=== PATIENT | female | born 1990 | race Caucasian/White ===

== ENCOUNTER → 2017-05-26 | Outpatient (CLI) | payer OTHER ==
[~2017-05-26] MED LIST: LORTAB 7.5-5001 TAB; PERCOCET 5/321 UDTAB PO; PHENERGAN25 MG; TOPAMAX PO
--- NOTE | ~2017-05-26 | US98 ---
[facility] A Service of [facility] RADIOLOGY TEXT RESULTS PATIENT: SHASHANK COHEN LOCATION: [facility] : [birth year] UNIT #: [id number] AGE: [address]: Rosmery Kaufman MD SEX: F ORDER DR: [id number] [address] [address] [id number] O MR#: [id number] Acc #: [id number] NAME: SHASHANK COHEN : 1990 SEX: F STUDY DATE/TIME: 05/26/2017 13:52 UNIT: [facility] ROOM: STUDY DESCRIPTION: US Pelvic Non-OB Complete Attending Physician: Rosmery Kaufman M.D. Referring Physician: Rosmery Kaufman M.D. Ordering Physician: Rosmery Kaufman M.D. Primary Care Physician: Rosmery Kaufman M.D. MEDICAL IMAGING REPORT This report is preliminary unless electronic signature is present. EXAM Pelvic ultrasound, 05/26 INDICATION Pelvic pain and back pain that started today. History of ovarian cyst. FINDINGS Transabdominal and transvaginal imaging is performed of the pelvis in multiple planes. Transvaginal imaging is performed for better evaluation of the endometrium and adnexa. Comparison is made with 07/08/2014. Uterus measures about 7.3 x 5.1 x 4.2 cm. Endometrial stripe is normal at 3.0 mm. Myometrial echotexture is normal. There is a small nabothian cyst in the cervix. There is a trace amount of free fluid in the cul-de-sac which is likely physiologic. Left ovary is normal and shows perfusion by Doppler. It does contain a probable small complicated cyst measuring up to 2.3 cm. The right ovary cannot be identified on this exam. IMPRESSION 1. Normal uterus and endometrial stripe. 2. 2.3 cm mildly complex left ovarian cyst. The left ovary is otherwise normal. 3. Nonvisualization of the right ovary. 4. Free fluid in the cul-de-sac, likely physiologic. STAT * RESULT Dictated by... Uriel Crowder Jr., M.D. THIS IS AN ELECTRONICALLY VERIFIED REPORT Uriel Crowder Jr., M.D. at 05/27/2017 1:51 PM [facility] A Service of [facility] RADIOLOGY TEXT RESULTS PATIENT: SHASHANK COHEN LOCATION: [facility] #: [id number] : [birth year] UNIT #: [id number] AGE: [address]: Rosmery Kaufman MD SEX: F ORDER DR: JESSICA/shelby TD: 05/27/2017 11:00 JOB #: [id number] MEDICAL IMAGING REPORT Page 1 of 1
== END | disposition home or self-care (01) ==
LOC: SGUS 13:22
DX: R10.2 Pelvic and perineal pain (principal); N83.202 Unspecified ovarian cyst, left side
CPT/HCPCS: 76830; 76856